=== PATIENT | female | born 1995 | race Caucasian/White ===

== ENCOUNTER 2017-05-30 15:40 | Emergency (ER) | payer SELFPAY ==
[~2017-05-30] VITALS: Ht 157.5 cm; Wt 68.0 kg
[2017-05-30 15:43] VITALS: BP 141/85; PULSE 75; RESP 16; TEMP 98.7; O2SAT 100
[2017-05-30] MEDS ORDERED: SODIUM CHLOR 0.9% 1000 ML INJ 1,000 ML IV ONE (16:00)
--- NOTE | 2017-05-30 16:02 | PD ---
HPI Chief Complaint: Syncope/Near-Syncope Time Seen by Provider: 15:54 Travel History International Travel<30 days: No Contact w/Intl Traveler<30days: No Traveled to known affect area: No History of Present Illness HPI This 22-year-old female says she was at work when she had an onset of her menstrual period. She has heavy periods she only has 4-5 times a year. She says there is no chance of . She is not sexually active She has been having heavy bleeding and lower abdominal crampy pain similar to what she gets with her period. She stood up and got very dizzy and fell to the ground. He does not think she had a loss of consciousness PFSH Past Medical History Medical History: Denies Significant Hx Tetanus Vaccination: > 5 Years Influenza Vaccination: No ?: Not LMP: 05/30/17 Past Surgical History Surgical History: No Previous Surgery Social History Alcohol Use: Yes (Rare) Tobacco Use: No Substance Use: No Allergies-Medications (Allergen,Severity, Reaction): Coded Allergies: No Known Allergies (Unverified , 05/30/17) Reported Meds & Prescriptions Reported Meds & Active Scripts Active No Active Prescriptions or Reported Medications Review of Systems General / Constitutional: No: Fever, Chills Eyes: No: Diploplia, Blurred Vision, Photophobia HENT: Positive: Lightheadedness, No: Headaches Cardiovascular: No: Chest Pain or Discomfort, Palpitations Respiratory: No: Cough, Shortness of Breath Gastrointestinal: No: Vomiting Genitourinary: Positive: Dysmenorrhea, Menorrhagia Musculoskeletal: No: Myalgias, Arthralgias Skin: No Rash, No Itching Neurologic: Positive: Weakness Psychiatric: No: Anxiety, Depression Hematologic/Lymphatic: No: Easy Bruising Physical Exam Narrative GENERAL: Well-developed female SKIN: Focused skin assessment warm/dry. HEAD: Atraumatic. Normocephalic. EYES: Pupils equal and round. No scleral icterus. No injection or drainage. ENT: No nasal bleeding or discharge. Mucous membranes pink and moist. NECK: Trachea midline. No JVD. CARDIOVASCULAR: Regular rate and rhythm. No murmur appreciated. RESPIRATORY: No accessory muscle use. Clear to auscultation. Breath sounds equal bilaterally. GASTROINTESTINAL: Abdomen soft, non-tender, nondistended. Hepatic and splenic margins not palpable. Pelvic: There is some blood in the vaginal vault. The os is closed. The uterus is not palpably enlarged. MUSCULOSKELETAL: No obvious deformities. No clubbing. No cyanosis. No edema. NEUROLOGICAL: Awake and alert. No obvious cranial nerve deficits. Motor grossly within normal limits. Normal speech. PSYCHIATRIC: Appropriate mood and affect; insight and judgment normal. Data Data Last Documented VS Vital Signs Date Time Temp Pulse Resp B/P (MAP) Pulse Ox O2 Delivery O2 Flow Rate FiO2 05/30/17 15:43 98.7 75 16 141/85 (103) 100 Orders Orders Complete Blood Count With Diff (05/30/17 15:58) Comprehensive Metabolic Panel (05/30/17 15:58) Prothrombin Time / Inr (Pt) (05/30/17 15:58) Act Partial Throm Time (Ptt) (05/30/17 15:58) Thyroid Stimulating Hormone (05/30/17 15:58) Sodium Chlor 0.9% 1000 Ml Inj (Ns 1000 M (05/30/17 16:00) Orthostatic Vital Signs (05/30/17 16:01) Labs Laboratory Tests Test 05/30/17 16:10 White Blood Count 6.8 TH/MM3 Red Blood Count 4.10 MIL/MM3 Hemoglobin 10.6 GM/DL Hematocrit 32.7 % Mean Corpuscular Volume 79.8 FL Mean Corpuscular Hemoglobin 25.7 PG Mean Corpuscular Hemoglobin Concent 32.2 % Red Cell Distribution Width 18.4 % Platelet Count 328 TH/MM3 Mean Platelet Volume 7.6 FL Neutrophils (%) (Auto) 71.1 % Lymphocytes (%) (Auto) 20.1 % Monocytes (%) (Auto) 6.2 % Eosinophils (%) (Auto) 2.1 % Basophils (%) (Auto) 0.5 % Neutrophils # (Auto) 4.9 TH/MM3 Lymphocytes # (Auto) 1.4 TH/MM3 Monocytes # (Auto) 0.4 TH/MM3 Eosinophils # (Auto) 0.1 TH/MM3 Basophils # (Auto) 0.0 TH/MM3 CBC Comment DIFF FINAL Differential Comment Prothrombin Time 11.8 SEC Prothromb Time International Ratio 1.1 RATIO Activated Partial Thromboplast Time 29.9 SEC Blood Urea Nitrogen 10 MG/DL Creatinine 0.69 MG/DL Random Glucose 89 MG/DL Total Protein 8.3 GM/DL Albumin 4.0 GM/DL Calcium Level 9.3 MG/DL Alkaline Phosphatase 61 U/L Aspartate Amino Transf (AST/SGOT) 12 U/L Alanine Aminotransferase (ALT/SGPT) 16 U/L Total Bilirubin 0.5 MG/DL Sodium Level 138 MEQ/L Potassium Level 3.6 MEQ/L Chloride Level 105 MEQ/L Carbon Dioxide Level 26.4 MEQ/L Anion Gap 7 MEQ/L Estimat Glomerular Filtration Rate 106 ML/MIN Thyroid Stimulating Hormone 3rd Gen 0.960 uIU/ML MDM Medical Decision Making Medical Screen Exam Complete: Yes Emergency Medical Condition: Yes Medical Record Reviewed: Yes Differential Diagnosis Differential includes anemia, hypovolemia, dysmenorrhea, menorrhagia Narrative Course Hemoglobin is 10.6. Orthostatic vital signs are stable. She did have some slight dizziness when standing. She is stable for discharge. I will prescribe iron sulfate for her to take once daily but I recommended that she follow up with gynecology Diagnosis Primary Impression: Dysmenorrhea Additional Impression: Menorrhagia with irregular cycle Scripts Ferrous Sulfate (Ferrous Sulfate) 325 Mg (65 Mg Iron) Tablet 325 MG PO DAILY for Nutritional Supplement for 30 Days, #30 TAB 0 Refills Prov: Boyd Haas MD 05/30/17 Disposition: DISCHARGE HOME Condition: Stable Boyd Haas MD May 30, 2017 16:02
[2017-05-30 16:18] LABS: AUTOMATED NEUTROPHIL # 4.9 TH/MM3 (1.8-7.7); BASOPHIL % 0.5 % (0.0-2.0); EOSINOPHIL # 0.1 TH/MM3 (0-0.4); EOSINOPHIL % 2.1 % (0.0-4.0); HEMATOCRIT 32.7 % (35.0-46.0); HEMO FLAGS DIFF FINAL; LYMPH % 20.1 % (9.0-44.0); LYMPHOCYTE # 1.4 TH/MM3 (1.0-4.8); MEAN CELL VOLUME 79.8 FL (80.0-100.0); MEAN CORPUSCULAR HEMOGLOBIN 25.7 PG (27.0-34.0); MEAN CORPUSCULAR HGB CONC 32.2 % (32.0-36.0); MONO % 6.2 % (0.0-8.0); NEUT % 71.1 % (16.0-70.0); PLATELET COUNT 328 TH/MM3 (150-450); RED CELL DISTRIBUTION WIDTH 18.4 % (11.6-17.2); WHITE BLOOD COUNT 6.8 TH/MM3 (4.0-11.0)
[2017-05-30 16:28] LABS: CHLORIDE 105 MEQ/L (98-107); POTASSIUM 3.6 MEQ/L (3.5-5.1); SODIUM (NA) 138 MEQ/L (136-145)
[2017-05-30 16:32] LABS: ANION GAP 7 MEQ/L (5-15); BICARBONATE 26.4 MEQ/L (21.0-32.0); BLOOD UREA NITROGEN 10 MG/DL (7-18)
[2017-05-30 16:34] LABS: APTT (PATIENT) 29.9 SEC (24.3-30.1); INTERNATIONAL NORMALIZED RATIO 1.1 RATIO; PROTHROMBIN TIME - PATIENT 11.8 SEC (9.8-11.6)
[2017-05-30 16:35] LABS: ALT (GPT) 16 U/L (10-53); AST (GOT) 12 U/L (15-37); GLOMERULAR FILTRATION RATE 106 ML/MIN (>89)
[2017-05-30 16:37] LABS: TOTAL BILIRUBIN ADULT 0.5 MG/DL (0.2-1.0)
[2017-05-30 16:38] LABS: ALKALINE PHOSPHATASE 61 U/L (45-117)
[2017-05-30 17:10] VITALS: BP_SYST 134; BP_SYST 137; BP_SYST 149; BP_DIAS 74; BP_DIAS 78; BP_DIAS 81; RESP 16
[2017-05-30] MEDS ORDERED: FERR325T8 PO (17:20)
[2017-05-30 17:45] VITALS: BP 125/73; PULSE 82; RESP 16; O2SAT 98
== END 2017-05-30 17:50 | disposition home or self-care (01) ==
LOC: PHED 15:40
DX: N94.6 Dysmenorrhea, unspecified (principal); N92.0 Excessive and frequent menstruation with regular cycle
CPT/HCPCS: 80053; 84443; 85025; 85610; 85730; 96360; 99284; J7030